=== PATIENT | male | born 1975 | race Caucasian/White ===

== ENCOUNTER 2019-03-24 13:16 | Emergency (ER) | payer MEDICARE, OTHER ==
[~2019-03-24] VITALS: Ht 182.9 cm; Wt 101.2 kg
[~2019-03-24 13:16] MED LIST: GABA300 PO; PENVK500 PO; WARF5 PO
[2019-03-24] MEDS ORDERED: Ultram50 MG PO (14:41)
== END 2019-03-24 14:48 | disposition home or self-care (01) ==
LOC: ER 13:16
DX: S46.002A Unspecified injury of muscle(s) and tendon(s) of the rotator cuff of left shoulder, initial encounter (principal); X50.0XXA Overexertion from strenuous movement or load, initial encounter; Z88.5 Allergy status to narcotic agent; Z79.01 Long term (current) use of anticoagulants; Z79.899 Other long term (current) drug therapy; F17.210 Nicotine dependence, cigarettes, uncomplicated
CPT/HCPCS: 73030; 96372; 99283-25; J1885

== ENCOUNTER 2020-03-01 10:06 | Emergency (ER) | payer MEDICARE, OTHER ==
[~2020-03-01] VITALS: Ht 182.9 cm; Wt 111.1 kg
[~2020-03-01 10:06] MED LIST changes: +Ultram50 MG PO
[2020-03-01 11:55] LABS: International Normalized Ratio 1.02; Prothrombin Time Results 10.9 Sec (9.7-11.5)
[2020-03-01] MEDS ORDERED: Cephalexin500 MG PO (13:18)
[2020-03-01] MEDS ORDERED: Coumadin5 MG PO (13:18)
== END 2020-03-01 13:28 | disposition home or self-care (01) ==
LOC: ER 10:06
PROVIDERS: Emergency Medicine
DX: L03.116 Cellulitis of left lower limb (principal); M79.81 Nontraumatic hematoma of soft tissue; D68.9 Coagulation defect, unspecified; F17.210 Nicotine dependence, cigarettes, uncomplicated; Z88.5 Allergy status to narcotic agent; Z79.01 Long term (current) use of anticoagulants
CPT/HCPCS: 36415; 73140; 76882; 85610; 96365; 96375; 99283-25; J0690; J1885

== ENCOUNTER 2020-05-13 19:52 | Emergency (ER) | payer MEDICARE ==
[~2020-05-13] VITALS: Ht 182.9 cm; Wt 111.1 kg
[~2020-05-13 19:52] MED LIST changes: +Cephalexin500 MG PO; +Coumadin5 MG PO
[2020-05-13] MEDS ORDERED: Keflex500 MG PO (22:20)
== END 2020-05-13 22:44 | disposition home or self-care (01) ==
LOC: ER 19:52
DX: L03.317 Cellulitis of buttock (principal); Z88.5 Allergy status to narcotic agent; Z79.01 Long term (current) use of anticoagulants; Z86.718 Personal history of other venous thrombosis and embolism; Z86.711 Personal history of pulmonary embolism; F17.210 Nicotine dependence, cigarettes, uncomplicated
CPT/HCPCS: 99283; A9270-GY

== ENCOUNTER → 2020-09-08 | Outpatient (CLI) | payer MEDICARE ==
[~2020-09-08] MED LIST changes: +Keflex500 MG PO
== END | disposition home or self-care (01) ==
LOC: LAB 19:48 → LAB SHORT 19:48
DX: L02.91 Cutaneous abscess, unspecified (principal)
CPT/HCPCS: 87070; 87075; 87077; 87147; 87186; 87205

== ENCOUNTER 2021-06-29 15:58 | Emergency (ER) | payer MEDICARE, OTHER ==
[~2021-06-29] VITALS: Ht 182.9 cm; Wt 104.3 kg
[2021-06-29] MEDS ORDERED: CEPH500 PO (16:25)
[2021-06-29] MEDS ORDERED: Bactrim Ds Tab1 EACH PO (16:25)
== END 2021-06-29 17:21 | disposition left against medical advice (07) ==
LOC: ER 15:58
DX: I89.1 Lymphangitis (principal); L08.9 Local infection of the skin and subcutaneous tissue, unspecified; F17.210 Nicotine dependence, cigarettes, uncomplicated
CPT/HCPCS: 36415; 96365; 99283-25; A9270; J0690

== ENCOUNTER 2022-05-27 23:02 | Emergency (ER) | payer MEDICARE, OTHER ==
[~2022-05-27] VITALS: Ht 185.4 cm; Wt 113.4 kg
[~2022-05-27 23:02] MED LIST changes: +Bactrim Ds Tab1 EACH PO; +CEPH500 PO
== END 2022-05-28 00:34 | disposition home or self-care (01) ==
LOC: ER 23:02
DX: S91.311A Laceration without foreign body, right foot, initial encounter (principal); W26.8XXA Contact with other sharp object(s), not elsewhere classified, initial encounter; F17.210 Nicotine dependence, cigarettes, uncomplicated; Z79.01 Long term (current) use of anticoagulants; Z86.718 Personal history of other venous thrombosis and embolism; Z86.711 Personal history of pulmonary embolism; Z88.5 Allergy status to narcotic agent; Z79.899 Other long term (current) drug therapy
CPT/HCPCS: 12002; 99282-25

== ENCOUNTER 2023-06-27 20:12 | Emergency (ER) | payer MEDICARE, OTHER ==
[~2023-06-27] VITALS: Ht 185.4 cm; Wt 113.4 kg
[2023-06-27 21:06] VITALS: BP 138/93
== END 2023-06-28 00:15 | disposition left against medical advice (07) ==
LOC: ER 20:12
DX: S61.411A Laceration without foreign body of right hand, initial encounter (principal); L53.9 Erythematous condition, unspecified; W26.8XXA Contact with other sharp object(s), not elsewhere classified, initial encounter; Z53.29 Procedure and treatment not carried out because of patient's decision for other reasons
CPT/HCPCS: 99282

== ENCOUNTER 2024-12-29 03:47 | Emergency (ER) | payer SELFPAY ==
[~2024-12-29] VITALS: Ht 182.9 cm; Wt 109.8 kg
[~2024-12-29 03:47] MED LIST changes: +BACTRIM DS TAB1 EAC1 PO
[2024-12-29 09:15] VITALS: BP 111/71
== END 2024-12-29 09:12 | disposition home or self-care (01) ==
LOC: ER 03:47
DX: M54.2 Cervicalgia (principal); G89.29 Other chronic pain; Z88.5 Allergy status to narcotic agent; Z79.01 Long term (current) use of anticoagulants; Z79.899 Other long term (current) drug therapy; F17.210 Nicotine dependence, cigarettes, uncomplicated
CPT/HCPCS: 72040; 99283-25